=== PATIENT | male | born 1965 | race Caucasian/White ===

== ENCOUNTER 2021-07-14 11:56 | Inpatient (IN) | payer OTHER ==
[~2021-07-14] VITALS: Ht 162.6 cm; Wt 112.2 kg
[2021-07-14] MEDS ORDERED: FUROSEMIDE 20 MG TABLET PO ONE (12:45)
[2021-07-14] MEDS ORDERED: LOSA-382 PO (12:46)
[2021-07-14] MEDS ORDERED: FURO20 PO (12:47)
[2021-07-14] MEDS ORDERED: AMLO-257 PO (12:47)
[2021-07-14] MEDS ORDERED: METO50 PO (12:48)
[2021-07-14 13:06] LABS: BASOPHILS % (AUTO) 0.7 % (0.0-2.0); EOSINOPHILS % (AUTO) 2.4 % (1.0-6.0); HEMATOCRIT 36.6 % (41-53); HEMOGLOBIN 11.9 g/dL (13.5-17.5); LYMPHOCYTES # (AUTO) 1.5 K/uL (1.0-4.8); LYMPHOCYTES % (AUTO) 14.2 % (22.0-44.0); MEAN CORPUSCULAR HEMOGLOBIN 29.4 pg (26.0-34.0); MEAN CORPUSCULAR HGB CONC 32.5 G/dL (31.0-37.0); MEAN CORPUSCULAR VOLUME 91 fL (80-100); MONOCYTES # (AUTO) 0.7 K/uL (0.1-1.0); MONOCYTES % (AUTO) 6.5 % (2.0-9.0); NEUTROPHILS # (AUTO) 7.9 K/uL (1.8-7.7); NEUTROPHILS % (AUTO) 76.2 % (40.0-70.0); PLATELET COUNT (AUTO) 245 K/uL (150-450); RED BLOOD CELL COUNT(AUTO) 4.05 MIL/uL (4.50-5.90); RED CELL DISTRIBUTION WIDTH 15.1 % (11.5-14.5)
[2021-07-14 13:21] LABS: ALBUMIN 1.3 g/dL (3.4-5.0); BILIRUBIN,TOTAL 0.2 mg/dL (0.1-1.0); CALCIUM, TOTAL 8.4 mg/dL (8.8-10.5); CREATININE 3.84 mg/dL (0.60-1.30); TOTAL PROTEIN, SERUM 6.2 g/dL (6.4-8.2)
[2021-07-14 13:24] LABS: POTASSIUM 6.2 mmol/L (3.5-5.1)
[2021-07-14] MEDS ORDERED: ALBUTEROL SULFATE 5 MG/ML 20 ML NEB SOLN [BULK] NEB ONE (13:30)
[2021-07-14] MEDS ORDERED: DEXTROSE 50%-WATER 25 GM/50 ML SYRINGE IVP ONE (13:30)
[2021-07-14] MEDS ORDERED: INSULIN REGULAR, HUMAN 100 UNITS/ML IVP ONE (13:30)
[2021-07-14] MEDS ORDERED: SODIUM ZIRCONIUM CYCLOSILICATE 5 GM POWDER PACKET PO ONE (14:15)
[2021-07-14] MEDS ORDERED: FUROSEMIDE 40 MG/4 ML VIAL IVP ONE (14:15)
[2021-07-14 17:09] VITALS: BP 161/93
[2021-07-14 17:24] VITALS: BP 161/93
[2021-07-14] MEDS ORDERED: ONDANSETRON HCL 4 MG/2 ML VIAL IVP PRN (19:00)
[2021-07-14] MEDS ORDERED: MORPHINE SULFATE 2 MG/ML SYRINGE IVP PRN (19:00)
[2021-07-14] MEDS ORDERED: ZOLPIDEM TARTRATE 5 MG TABLET PO PRN (19:00)
[2021-07-14] MEDS ORDERED: BISACODYL 10 MG RECTAL RECTAL SUPPOSITORY PR PRN (19:00)
[2021-07-14] MEDS ORDERED: MAGNESIUM HYDROXIDE SUSPENSION 30 ML UDCUP PO PRN (19:00)
[2021-07-14] MEDS ORDERED: HYDROCODONE/ACETAMINOPHEN 5-325 MG TABLET PO PRN (19:00)
[2021-07-14 20:30] VITALS: BP 142/76
[2021-07-14] MEDS ORDERED: SODIUM POLYSTYRENE SULFONATE 15 GM/60 ML SUSPENSION BOTTLE PO ONE (21:00)
[2021-07-14] MEDS: DOCUSATE SODIUM 100 MG CAPSULE PO SCH (21:21)
[2021-07-14] MEDS: FUROSEMIDE 20 MG/2 ML VIAL IVP SCH (21:21)
[2021-07-14] MEDS: LOSARTAN POTASSIUM 50 MG TABLET PO SCH (21:21)
[2021-07-14 21:41] LABS: GLUCOMETER DEV NAME(LOC) 5N.3; GLUCOSE,POINT OF CARE 161 MG/DL (70-110)
[2021-07-14] MEDS: HEPARIN SODIUM,PORCINE 5,000 UNITS/ML VIAL SQ SCH (22:39)
[2021-07-15 01:41] LABS: GLUCOMETER DEV NAME(LOC) 5N.1C; GLUCOSE,POINT OF CARE 101 MG/DL (70-110)
[2021-07-15 04:28] VITALS: BP 155/86
[2021-07-15 06:11] LABS: GLUCOMETER DEV NAME(LOC) 5N.1C; GLUCOSE,POINT OF CARE 110 MG/DL (70-110)
[2021-07-15 07:03] LABS: BASOPHILS % (AUTO) 0.5 % (0.0-2.0); EOSINOPHILS % (AUTO) 0.8 % (1.0-6.0); HEMATOCRIT 33.5 % (41-53); HEMOGLOBIN 11.1 g/dL (13.5-17.5); LYMPHOCYTES # (AUTO) 1.2 K/uL (1.0-4.8); MEAN CORPUSCULAR HEMOGLOBIN 29.7 pg (26.0-34.0); MEAN CORPUSCULAR VOLUME 90 fL (80-100); MONOCYTES # (AUTO) 0.6 K/uL (0.1-1.0); MONOCYTES % (AUTO) 7.8 % (2.0-9.0); NEUTROPHILS # (AUTO) 6.3 K/uL (1.8-7.7); NEUTROPHILS % (AUTO) 75.9 % (40.0-70.0); PLATELET COUNT (AUTO) 211 K/uL (150-450); RED BLOOD CELL COUNT(AUTO) 3.72 MIL/uL (4.50-5.90); RED CELL DISTRIBUTION WIDTH 15.1 % (11.5-14.5)
[2021-07-15 07:19] LABS: CALCIUM, TOTAL 8.1 mg/dL (8.8-10.5); CREATININE 3.97 mg/dL (0.60-1.30); POTASSIUM 5.4 mmol/L (3.5-5.1)
[2021-07-15] MEDS: PANTOPRAZOLE SODIUM 40 MG DR TABLET PO SCH (07:51)
[2021-07-15] MEDS: FUROSEMIDE 20 MG/2 ML VIAL IVP SCH ×2 (07:51→20:44)
[2021-07-15] MEDS: AmLODIPine BESYLATE 5 MG TABLET PO SCH (07:51)
[2021-07-15] MEDS: DOCUSATE SODIUM 100 MG CAPSULE PO SCH ×2 (07:51→20:44)
[2021-07-15] MEDS: HEPARIN SODIUM,PORCINE 5,000 UNITS/ML VIAL SQ SCH ×2 (07:51→16:16)
[2021-07-15] MEDS: METOPROLOL TARTRATE 50 MG TABLET PO SCH (07:52)
[2021-07-15] MEDS: LOSARTAN POTASSIUM 50 MG TABLET PO SCH (07:52)
[2021-07-15] MEDS ORDERED: SODIUM POLYSTYRENE SULFONATE 15 GM/60 ML SUSPENSION BOTTLE PO SCH (09:00)
[2021-07-15 09:03] VITALS: BP 171/83
[2021-07-15] MEDS: HydrALAZINE HCL 50 MG TABLET PO SCH ×2 (10:39→20:44)
[2021-07-15] MEDS: SODIUM ZIRCONIUM CYCLOSILICATE 5 GM POWDER PACKET PO SCH (10:39)
[2021-07-15] MEDS ORDERED: SODIUM ZIRCONIUM CYCLOSILICATE 5 GM POWDER PACKET PO SCH (10:45)
[2021-07-15] MEDS: ACETAMINOPHEN 325 MG TABLET PO PRN (11:49)
[2021-07-15 12:19] VITALS: BP 151/71
[2021-07-15 12:26] LABS: GLUCOMETER DEV NAME(LOC) 5S.1B; GLUCOSE,POINT OF CARE 105 MG/DL (70-110)
[2021-07-15 15:57] VITALS: BP 155/80
[2021-07-15 20:00] VITALS: BP 143/89
[2021-07-15 20:11] LABS: GLUCOMETER DEV NAME(LOC) 5S.1B; GLUCOSE,POINT OF CARE 120 MG/DL (70-110)
[2021-07-15 21:06] LABS: GLUCOMETER DEV NAME(LOC) 5N.1C; GLUCOSE,POINT OF CARE 151 MG/DL (70-110)
[2021-07-16] VITALS (7 sets, daily range): BP systolic 139–178; BP diastolic 66–99
[2021-07-16 00:01] LABS: CREATININE,URINE RANDOM 48.6 mg/dL (30.0-125.0)
[2021-07-16] MEDS: HEPARIN SODIUM,PORCINE 5,000 UNITS/ML VIAL SQ SCH ×4 (00:04→23:35)
[2021-07-16] MEDS: AmLODIPine BESYLATE 5 MG TABLET PO SCH ×2 (04:49→09:16)
[2021-07-16] MEDS: ACETAMINOPHEN 325 MG TABLET PO PRN ×2 (05:56→20:14)
[2021-07-16 06:06] LABS: GLUCOMETER DEV NAME(LOC) 5N.1C; GLUCOSE,POINT OF CARE 106 MG/DL (70-110)
[2021-07-16 06:59] LABS: % IRON SATURATION 17.2 % (30-44)
[2021-07-16 07:00] LABS: BASOPHILS % (AUTO) 0.5 % (0.0-2.0); EOSINOPHILS % (AUTO) 3.3 % (1.0-6.0); HEMATOCRIT 34.8 % (41-53); HEMOGLOBIN 11.3 g/dL (13.5-17.5); LYMPHOCYTES # (AUTO) 1.8 K/uL (1.0-4.8); LYMPHOCYTES % (AUTO) 24.9 % (22.0-44.0); MEAN CORPUSCULAR HEMOGLOBIN 29.2 pg (26.0-34.0); MEAN CORPUSCULAR HGB CONC 32.5 G/dL (31.0-37.0); MEAN CORPUSCULAR VOLUME 90 fL (80-100); MONOCYTES # (AUTO) 0.8 K/uL (0.1-1.0); MONOCYTES % (AUTO) 10.7 % (2.0-9.0); NEUTROPHILS # (AUTO) 4.5 K/uL (1.8-7.7); NEUTROPHILS % (AUTO) 60.6 % (40.0-70.0); PLATELET COUNT (AUTO) 225 K/uL (150-450); RED BLOOD CELL COUNT(AUTO) 3.87 MIL/uL (4.50-5.90); RED CELL DISTRIBUTION WIDTH 15.2 % (11.5-14.5)
[2021-07-16 07:04] LABS: HEMOGLOBIN A1C 6.1 % (3.8-5.6)
[2021-07-16 07:14] LABS: CALCIUM, TOTAL 8.1 mg/dL (8.8-10.5); CREATININE 4.16 mg/dL (0.60-1.30); POTASSIUM 4.8 mmol/L (3.5-5.1)
[2021-07-16] MEDS: DOCUSATE SODIUM 100 MG CAPSULE PO SCH ×4 (09:00→21:00)
[2021-07-16] MEDS: FUROSEMIDE 20 MG/2 ML VIAL IVP SCH ×2 (09:14→20:06)
[2021-07-16] MEDS: HydrALAZINE HCL 50 MG TABLET PO SCH ×2 (09:14→20:05)
[2021-07-16] MEDS: METOPROLOL TARTRATE 50 MG TABLET PO SCH ×2 (09:15→20:05)
[2021-07-16] MEDS: PANTOPRAZOLE SODIUM 40 MG DR TABLET PO SCH (09:15)
[2021-07-16] MEDS: SODIUM ZIRCONIUM CYCLOSILICATE 5 GM POWDER PACKET PO SCH (11:36)
[2021-07-16] MEDS ORDERED: SODIUM CHLORIDE 0.9% 250 ML IV ONE (11:48)
[2021-07-16] MEDS: SOD FERRIC GLUC COMPLX/SUCROSE 125 MG in SODIUM CHLORIDE 0.9% 100 ML IV SCH (12:40)
[2021-07-16 13:25] LABS: APPEARANCE,URINE CLEAR (CLEAR); BILIRUBIN,URINE NEGATIVE (NEGATIVE); GLUCOSE, URINE (UA) 150-200 mg/dL (NEGATIVE); KETONES,URINE NEGATIVE (NEGATIVE); LEUKOCYTE ESTERASE ,URINE NEGATIVE (NEGATIVE); NITRATE,URINE NEGATIVE (NEGATIVE); OCCULT BLOOD,URINE TRACE (NEGATIVE); PH,URINE 6.5 (5.0-8.0); PROTEIN,URINE 300-600,SEE CONFIRM mg/dL (NEGATIVE); UROBILINOGEN,URINE <=1.0 mg/dL (<=1.0)
[2021-07-16 13:45] LABS: BACTERIA,URINE None Seen /HPF (None Seen); RBC,URINE 0-2 /HPF (0-2); SQUAMOUS EPITHELIAL CELL,UR Few /LPF (None Seen); SULFOSALICYLIC ACID,URINE 3+ (Negative); WBC,URINE None Seen /HPF (0-5)
[2021-07-16 17:32] LABS: GLUCOMETER DEV NAME(LOC) 5N.1C; GLUCOSE,POINT OF CARE 93 MG/DL (70-110)
[2021-07-16 17:32] LABS: GLUCOMETER DEV NAME(LOC) 5N.1C; GLUCOSE,POINT OF CARE 127 MG/DL (70-110)
[2021-07-16 19:41] LABS: COVID AG,FIA SOURCE NASAL SWAB
[2021-07-16 23:11] LABS: GLUCOMETER DEV NAME(LOC) 5S.1B; GLUCOSE,POINT OF CARE 160 MG/DL (70-110)
[2021-07-17 03:43] VITALS: BP 157/87
[2021-07-17 06:22] LABS: GLUCOMETER DEV NAME(LOC) 5N.1C; GLUCOSE,POINT OF CARE 106 MG/DL (70-110)
[2021-07-17 06:56] LABS: BASOPHILS % (AUTO) 0.7 % (0.0-2.0); EOSINOPHILS % (AUTO) 6.6 % (1.0-6.0); HEMATOCRIT 35.1 % (41-53); HEMOGLOBIN 11.3 g/dL (13.5-17.5); LYMPHOCYTES # (AUTO) 2.6 K/uL (1.0-4.8); LYMPHOCYTES % (AUTO) 38.8 % (22.0-44.0); MEAN CORPUSCULAR HGB CONC 32.1 G/dL (31.0-37.0); MEAN CORPUSCULAR VOLUME 90 fL (80-100); MONOCYTES # (AUTO) 0.7 K/uL (0.1-1.0); MONOCYTES % (AUTO) 10.4 % (2.0-9.0); NEUTROPHILS # (AUTO) 2.9 K/uL (1.8-7.7); NEUTROPHILS % (AUTO) 43.5 % (40.0-70.0); PLATELET COUNT (AUTO) 232 K/uL (150-450); RED BLOOD CELL COUNT(AUTO) 3.89 MIL/uL (4.50-5.90); RED CELL DISTRIBUTION WIDTH 15.2 % (11.5-14.5)
[2021-07-17 07:07] LABS: CALCIUM, TOTAL 8.1 mg/dL (8.8-10.5); CREATININE 3.92 mg/dL (0.60-1.30); POTASSIUM 4.9 mmol/L (3.5-5.1)
[2021-07-17] MEDS: HydrALAZINE HCL 50 MG TABLET PO SCH (08:42)
[2021-07-17] MEDS: PANTOPRAZOLE SODIUM 40 MG DR TABLET PO SCH (08:42)
[2021-07-17] MEDS: FUROSEMIDE 20 MG/2 ML VIAL IVP SCH (08:42)
[2021-07-17] MEDS: HEPARIN SODIUM,PORCINE 5,000 UNITS/ML VIAL SQ SCH (08:42)
[2021-07-17] MEDS: AmLODIPine BESYLATE 5 MG TABLET PO SCH (08:43)
[2021-07-17] MEDS: METOPROLOL TARTRATE 50 MG TABLET PO SCH (08:45)
[2021-07-17] MEDS: DOCUSATE SODIUM 100 MG CAPSULE PO SCH (08:55)
[2021-07-17 09:09] VITALS: BP 150/78
[2021-07-17 12:04] VITALS: BP 141/77
[2021-07-17] MEDS: SOD FERRIC GLUC COMPLX/SUCROSE 125 MG in SODIUM CHLORIDE 0.9% 100 ML IV SCH (12:47)
[2021-07-17 13:22] LABS: GLUCOMETER DEV NAME(LOC) 5N.1C; GLUCOSE,POINT OF CARE 166 MG/DL (70-110)
[2021-07-17 15:08] LABS: CREATININE,SERUM FOR CRCL 3.92 mg/dL (0.60-1.30)
[2021-07-17 15:15] LABS: CREATININE,URINE 34.1 mg/dL (30.0-125.0)
[2021-07-19 16:07] LABS: ALBUMIN URINE (ELP) 48.5 %
[2021-07-19 16:07] LABS: ALPHA-1 (IFE & PEP) 0.3 g/dL (0.0-0.4); BETA (IFE & ELP) 0.8 g/dL (0.7-1.3); GAMMA GLOBULINS (IFE & ELP) 0.5 g/dL (0.4-1.8); IGM (IMMUNOFIXATION) 50 mg/dL (20-172)
== END 2021-07-17 15:15 | disposition home or self-care (01) | DRG 300 ==
LOC: EMS 11:56 → 5S 14:37
PROVIDERS: ADMIT Internal Medicine; ATTEND Internal Medicine
DX: I70.222 Atherosclerosis of native arteries of extremities with rest pain, left leg (principal); N17.9 Acute kidney failure, unspecified; E87.1 Hypo-osmolality and hyponatremia; E87.2 Acidosis; Z68.41 Body mass index [BMI] 40.0-44.9, adult; I13.2 Hypertensive heart and chronic kidney disease with heart failure and with stage 5 chronic kidney disease, or end stage renal disease; N18.5 Chronic kidney disease, stage 5; D63.8 Anemia in other chronic diseases classified elsewhere; I50.9 Heart failure, unspecified; E66.01 Morbid (severe) obesity due to excess calories; Z20.822 Contact with and (suspected) exposure to COVID-19; E87.5 Hyperkalemia; E11.22 Type 2 diabetes mellitus with diabetic chronic kidney disease; R06.01 Orthopnea; E11.51 Type 2 diabetes mellitus with diabetic peripheral angiopathy without gangrene; F17.210 Nicotine dependence, cigarettes, uncomplicated; Z85.51 Personal history of malignant neoplasm of bladder; Z90.49 Acquired absence of other specified parts of digestive tract; Z79.899 Other long term (current) drug therapy
CPT/HCPCS: 71045; 76770; 80048; 80053; 81001; 81002; 82043; 82570; 82575; 82728; 82784; 82962; 83036; 83540; 83550; 83835; 83880; 83883; 83970; 84132; 84155; 84156; 84165; 84166; 85025; 86334; 93005; 93306; 93925; 93970; 94640; 99291; J1644; J1815; J1940; J2916; J7050; Q9967; 36415-L1; 36415-TC; J7611